=== PATIENT | female | born 1965 | race Caucasian/White ===

== ENCOUNTER 2016-05-02 07:29 | Emergency (ER) | payer SELFPAY ==
[~2016-05-02] VITALS: Ht 142.2 cm; Wt 70.0 kg
[2016-05-02] MEDS ORDERED: ELIMITE60 GM EX (08:22)
[2016-05-02 08:40] VITALS: BP 136/82
[2016-05-03] MEDS ORDERED: BENADRYL 50MG C50 MG PO (17:46)
[2016-05-03] MEDS ORDERED: PREDNISONE10 MG PO (17:46)
== END 2016-05-02 08:41 | disposition home or self-care (01) | DRG 607 ==
LOC: ED 07:29
DX: B86 Scabies (principal); B85.0 Pediculosis due to Pediculus humanus capitis

== ENCOUNTER 2016-05-03 17:07 | Emergency (ER) | payer SELFPAY ==
[~2016-05-03] VITALS: Ht 142.2 cm; Wt 60.0 kg
[~2016-05-03 17:07] MED LIST: ELIMITE60 GM EX
[2016-05-03] MEDS ORDERED: PREDNISONE10 MG PO (17:46)
[2016-05-03] MEDS ORDERED: BENADRYL 50MG C50 MG PO (17:46)
[2016-05-03 17:58] VITALS: BP 162/55
== END 2016-05-03 17:58 | disposition home or self-care (01) | DRG 607 ==
LOC: ED 17:07
DX: L25.3 Unspecified contact dermatitis due to other chemical products (principal)

== ENCOUNTER 2016-08-13 13:16 | Emergency (ER) | payer SELFPAY ==
[~2016-08-13] VITALS: Ht 142.2 cm; Wt 62.0 kg
[~2016-08-13 13:16] MED LIST changes: +BENADRYL 50MG C50 MG PO; +PREDNISONE10 MG PO
[2016-08-13] MEDS ORDERED: BETAMETH VAL0.1 % EX (13:46)
[2016-08-13 14:04] VITALS: BP 130/92
== END 2016-08-13 14:04 | disposition home or self-care (01) | DRG 607 ==
LOC: ED 13:16
DX: L25.9 Unspecified contact dermatitis, unspecified cause (principal); F17.210 Nicotine dependence, cigarettes, uncomplicated

== ENCOUNTER 2019-12-28 09:23 | Emergency (ER) | payer SELFPAY ==
[~2019-12-28] VITALS: Ht 142.2 cm; Wt 62.7 kg
[~2019-12-28 09:23] MED LIST changes: +BETAMETH VAL0.1 % EX
[2019-12-28] MEDS ORDERED: PENICILLIN V P500 MG PO (10:02)
[2019-12-28 10:18] VITALS: BP 156/104
== END 2019-12-28 10:19 | disposition home or self-care (01) | DRG 159 ==
LOC: ED 09:23
DX: K02.9 Dental caries, unspecified (principal); F17.200 Nicotine dependence, unspecified, uncomplicated

== ENCOUNTER 2020-05-19 | Emergency (ER) | payer BC ==
[~2020-05-19] MED LIST changes: +PENICILLIN V P500 MG PO
[2020-05-19] MEDS ORDERED: AMOXICILLIN500 MG PO (09:07)
[2020-05-19] MEDS ORDERED: NAPROXEN500 MG PO (09:07)
== END 2020-05-19 09:10 | disposition home or self-care (01) | DRG 158 ==
DX: K02.9 Dental caries, unspecified (principal); M84.68XA Pathological fracture in other disease, other site, initial encounter for fracture; F17.200 Nicotine dependence, unspecified, uncomplicated

== ENCOUNTER 2020-07-21 11:00 | Emergency (ER) | payer BC ==
[~2020-07-21] VITALS: Ht 142.2 cm; Wt 70.0 kg
[~2020-07-21 11:00] MED LIST changes: +AMOXICILLIN500 MG PO; +NAPROXEN500 MG PO
[2020-07-21] MEDS ORDERED: NAPROXEN500 MG PO (11:59)
[2020-07-21] MEDS ORDERED: CYCLOBENZAPRINE10 MG PO (11:59)
[2020-07-21 12:29] VITALS: BP 125/74
== END 2020-07-21 12:29 | disposition home or self-care (01) | DRG 552 ==
LOC: ED 11:00
DX: M47.814 Spondylosis without myelopathy or radiculopathy, thoracic region (principal); F17.200 Nicotine dependence, unspecified, uncomplicated

== ENCOUNTER 2020-07-30 11:11 | Emergency (ER) | payer BC ==
[~2020-07-30] VITALS: Ht 142.2 cm; Wt 62.7 kg
[~2020-07-30 11:11] MED LIST changes: +CYCLOBENZAPRINE10 MG PO
[2020-07-30] MEDS ORDERED: PENICILLN VK500 MG PO (12:16)
[2020-07-30 12:28] VITALS: BP 146/98
== END 2020-07-30 12:35 | disposition home or self-care (01) | DRG 159 ==
LOC: ED 11:11
DX: K02.9 Dental caries, unspecified (principal); K04.7 Periapical abscess without sinus; F17.210 Nicotine dependence, cigarettes, uncomplicated

== ENCOUNTER 2021-08-04 03:13 | Emergency (ER) | payer BC ==
[~2021-08-04] VITALS: Ht 142.2 cm; Wt 68.0 kg
[~2021-08-04 03:13] MED LIST changes: +PENICILLN VK500 MG PO
[2021-08-04 03:43] VITALS: BP 117/87
[2021-08-04] MEDS ORDERED: LOSARTAN/HCT1 TA1 PO (03:47)
[2021-08-04 03:55] VITALS: BP 110/80
[2021-08-04 03:59] LABS: HEMATOCRIT 48.6 % (37.0-47.0); IMMATURE GRANULOCYTES 0.2 % (0.0-5.0); MEAN CELL VOLUME 90.3 fL CALC (80.0-100.0); MEAN CORPUSCULAR HGB 29.7 pG CALC (26.0-32.0); MEAN CORPUSCULAR HGB CONC 32.9 g/dL CAL (32.0-36.0); NEUT# 13.45 thou/uL (2.00-7.15); RED BLOOD COUNT 5.38 mill/uL (4.20-5.60); RED CELL DISTRI WIDTH 12.8 % (11.5-15.5); URINE BLOOD DIPSTICK NEGATIVE (NEGATIVE); URINE COLOR YELLOW; URINE GLUCOSE - DIPSTICK NEGATIVE (NEGATIVE); URINE KETONE 40 mg/dL (NEGATIVE); URINE LEUK ESTERASE NEGATIVE (NEGATIVE); URINE PROTEIN - DIPSTICK NEGATIVE (NEG-TRACE); URINE SPECIFIC GRAVITY >=1.030; URINE UROBILINOGEN - DIPSTICK 0.2 E.U./dL (0.2)
[2021-08-04 04:00] VITALS: BP 113/85
[2021-08-04 04:01] LABS: URINE BILIRUBIN - DIPSTICK SMALL (NEGATIVE); URINE NITRITE - DIPSTICK NEGATIVE (Negative)
[2021-08-04 04:14] LABS: ALBUMIN 4.7 g/dL (3.2-5.0); ALKALINE PHOSPHATASE 61 u/l (38-126); AMYLASE 108 u/l (30-110); ANION GAP 13 (6-22 (CALC)); BILIRUBIN, TOTAL 0.5 mg/dL (0.0-1.4); BUN 21 mg/dL (7-17); BUN/CREATININE RATIO 22 (12-20 (CALC)); CARBON DIOXIDE 33 mmol/l (22-30); CHLORIDE 95 mmol/l (95-108); GFR FOR AFR.AMER. > 60 ML/MIN (>=60 (CALC)); GFR OTHER RACES 57 ML/MIN (>=60 (CALC)); LIPASE 80 u/l (23-300); POTASSIUM 3.9 mmol/l (3.5-5.1); SGOT/AST 24 u/l (14-36); SODIUM 136 mmol/l (137-146); TOTAL PROTEIN 8.6 g/dL (6.3-8.2)
[2021-08-04 05:14] VITALS: BP 125/84
[2021-08-04 05:40] VITALS: BP 125/84
== END 2021-08-04 05:40 | disposition short-term general hospital (02) | DRG 66 ==
LOC: ED 03:13
PROVIDERS: Family Medicine
DX: I61.8 Other nontraumatic intracerebral hemorrhage (principal); I10 Essential (primary) hypertension; F17.200 Nicotine dependence, unspecified, uncomplicated
CPT/HCPCS: J1953

== ENCOUNTER 2021-08-14 10:57 | Emergency (ER) | payer BC ==
[~2021-08-14] VITALS: Ht 142.2 cm; Wt 70.7 kg
[~2021-08-14 10:57] MED LIST changes: +LOSARTAN/HCT1 TA1 PO
[2021-08-14 11:09] VITALS: BP 169/89
[2021-08-14 11:30] VITALS: BP 129/76
[2021-08-14 12:25] VITALS: BP 149/94
[2021-08-14 12:30] VITALS: BP 133/90
[2021-08-14 13:01] VITALS: BP 136/89
== END 2021-08-14 11:57 | disposition home or self-care (01) | DRG 918 ==
LOC: ED 10:57
DX: T39.1X1A Poisoning by 4-Aminophenol derivatives, accidental (unintentional), initial encounter (principal); T38.0X1A Poisoning by glucocorticoids and synthetic analogues, accidental (unintentional), initial encounter; T42.6X1A Poisoning by other antiepileptic and sedative-hypnotic drugs, accidental (unintentional), initial encounter; T46.5X1A Poisoning by other antihypertensive drugs, accidental (unintentional), initial encounter; I10 Essential (primary) hypertension; F17.200 Nicotine dependence, unspecified, uncomplicated

== ENCOUNTER 2021-08-15 02:42 | Emergency (ER) | payer BC ==
[~2021-08-15] VITALS: Ht 142.2 cm; Wt 70.9 kg
[2021-08-15] VITALS (7 sets, daily range): BP systolic 121–140; BP diastolic 81–94
[2021-08-15 03:28] LABS: IMMATURE GRANULOCYTES 2.6 % (0.0-5.0); MEAN CELL VOLUME 93.4 fL CALC (80.0-100.0); MEAN CORPUSCULAR HGB 29.7 pG CALC (26.0-32.0); MEAN CORPUSCULAR HGB CONC 31.8 g/dL CAL (32.0-36.0); NEUT# 12.54 thou/uL (2.00-7.15); RED BLOOD COUNT 4.27 mill/uL (4.20-5.60); RED CELL DISTRI WIDTH 12.9 % (11.5-15.5)
[2021-08-15 03:31] LABS: HEMATOCRIT 39.9 % (37.0-47.0); HEMOGLOBIN 12.7 g/dl (12.0-16.0)
[2021-08-15 03:40] LABS: ALKALINE PHOSPHATASE 52 u/l (38-126); BILIRUBIN, TOTAL 0.3 mg/dL (0.0-1.4); BUN 21 mg/dL (7-17); BUN/CREATININE RATIO 27 (12-20 (CALC)); CHLORIDE 101 mmol/l (95-108); CREATININE 0.8 mg/dL (0.5-1.0); GFR FOR AFR.AMER. > 60 ML/MIN (>=60 (CALC)); GFR OTHER RACES > 60 ML/MIN (>=60 (CALC)); SGOT/AST 22 u/l (14-36); SODIUM 135 mmol/l (137-146)
[2021-08-15 03:41] LABS: ALBUMIN 3.6 g/dL (3.2-5.0); ANION GAP 13 (6-22 (CALC)); CARBON DIOXIDE 26 mmol/l (22-30); POTASSIUM 4.7 mmol/l (3.5-5.1); TOTAL PROTEIN 6.5 g/dL (6.3-8.2)
[2021-08-15 03:52] LABS: MYOGLOBIN 33 ng/mL (0 - 62)
== END 2021-08-15 06:06 | disposition home or self-care (01) | DRG 914 ==
LOC: ED 02:42
PROVIDERS: Emergency Medicine
DX: S09.90XA Unspecified injury of head, initial encounter (principal); F41.9 Anxiety disorder, unspecified; I10 Essential (primary) hypertension; W54.1XXA Struck by dog, initial encounter; Y92.003 Bedroom of unspecified non-institutional (private) residence as the place of occurrence of the external cause; Z98.890 Other specified postprocedural states

== ENCOUNTER 2024-04-17 14:35 | Observation (INO) | payer SELFPAY ==
[2024-04-17] VITALS (13 sets, daily range): BP systolic 100–124; BP diastolic 61–85
[~2024-04-17] VITALS: Ht 142.2 cm; Wt 63.2 kg
[~2024-04-17 14:35] MED LIST changes: +BACTRIM DS1 TAB PO; +PHENAZOPYRIDIN100 M1 PO
[2024-04-17] MEDS ORDERED: AZITHROMYCIN 500 MG in SODIUM CHLORIDE 0.9% 500 ML IV ONE (14:55)
[2024-04-17] MEDS ORDERED: IPRATROPIUM-Albuterol 0.5MG-2.5MG/3 ML NEB ONE ×2 (14:55)
[2024-04-17] MEDS ORDERED: cefTRIAXone SODIUM 2 GM in SODIUM CHLORIDE 0.9% 100 ML IV ONE (14:55)
[2024-04-17 15:03] LABS: BASO% 0.4 % (0-3); EOS% 2.4 % (0-8); HEMATOCRIT 41.3 % (37.0-47.0); HEMOGLOBIN 13.4 g/dl (12.0-16.0); IMMATURE GRANULOCYTES 0.2 % (0.0-5.0); LYMPH% 14.6 % (15-41); MEAN CELL VOLUME 94.1 fL CALC (80.0-100.0); MEAN CORPUSCULAR HGB 30.5 pG CALC (26.0-32.0); MEAN CORPUSCULAR HGB CONC 32.4 g/dL CAL (32.0-36.0); MONO% 4.5 % (2-13); NEUT# 7.82 thou/uL (2.00-7.15); NEUT% 77.9 % (42-76); RED BLOOD COUNT 4.39 mill/uL (4.20-5.60); RED CELL DISTRI WIDTH 12.8 % (11.5-15.5)
[2024-04-17 15:23] LABS: ALBUMIN 4.2 g/dL (3.2-5.0); BILIRUBIN, TOTAL 0.8 mg/dL (0.02-1.3); CREATININE 0.8 mg/dL (0.5-1.0); POTASSIUM 4.1 mmol/l (3.5-5.1); TOTAL PROTEIN 7.2 g/dL (6.3-8.2)
[2024-04-17] MEDS ORDERED: ATENOLOL25 MG PO (15:32)
[2024-04-17] MEDS ORDERED: ONDANSETRON HCl 4 MG/2 ML SDV IV ONE (15:35)
[2024-04-17] MEDS ORDERED: MAGNESIUM HYDROXIDE 30 ML UDC PO PRN (16:55)
[2024-04-17] MEDS ORDERED: ACETAMINOPHEN 325 MG/TAB PO PRN (16:55)
[2024-04-17] MEDS ORDERED: ENOXAPARIN SODIUM 40 MG/0.4 ML SYR SC SCH (21:00)
[2024-04-17] MEDS ORDERED: IPRATROPIUM-Albuterol 0.5MG-2.5MG/3 ML IN PRN (22:40)
[2024-04-18 04:36] VITALS: BP 117/75
[2024-04-18 07:04] VITALS: BP 121/83
[2024-04-18] MEDS ORDERED: ZITHROMAX250 MG PO (10:00)
[2024-04-18] MEDS ORDERED: MEDDOSEPAK PO (10:00)
[2024-04-18] MEDS ORDERED: methylPREDNISolone Sod Succ 40 MG/ML SDV IV SCH (10:30)
[2024-04-18] MEDS ORDERED: AZITHROMYCIN 500 MG in SODIUM CHLORIDE 0.9% 500 ML IV SCH (15:00)
== END 2024-04-18 12:36 | disposition home or self-care (01) | DRG 192 ==
LOC: ED 14:35 → ED-I 15:20 → ED 15:41 → MS2 15:42
PROVIDERS: Family Medicine; ADMIT Internal Medicine; ATTEND Internal Medicine
DX: J44.1 Chronic obstructive pulmonary disease with (acute) exacerbation (principal); I10 Essential (primary) hypertension; E66.9 Obesity, unspecified; F17.290 Nicotine dependence, other tobacco product, uncomplicated; Z20.822 Contact with and (suspected) exposure to COVID-19
CPT/HCPCS: G0378; J0456; J0696; J1650; J2405